=== PATIENT | male | born 1975 | race Two or more races ===

== ENCOUNTER 2017-07-27 17:48 | Emergency (ER) | payer OTHER ==
[~2017-07-27] VITALS: Ht 172.7 cm; Wt 70.3 kg
[2017-07-27] MEDS ORDERED: SILVER SULFADIAZINE CREAM 25 GM TUBE TP ONE (18:30)
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
[2017-07-27] MEDS ORDERED: SILVER SULFADIAZINE CREAM 25 GM TUBE ONE (18:41)
--- NOTE | 2017-07-27 18:50 | NUR ---
EBEN SCHNEIDER AT FOR WOUND CARE.
--- NOTE | 2017-07-27 19:49 | NUR ---
Patient discharged to home in stable condition. Written and verbal after care instructions given. Patient verbalizes understanding of instruction.
[2017-07-27 19:52] VITALS: BP 142/79
== END 2017-07-27 19:53 | disposition home or self-care (01) ==
LOC: ER 17:53
DX: T24.212A Burn of second degree of left thigh, initial encounter (principal); T24.222A Burn of second degree of left knee, initial encounter; T22.211A Burn of second degree of right forearm, initial encounter; T31.0 Burns involving less than 10% of body surface; X15.8XXA Contact with other hot household appliances, initial encounter; Y93.89 Activity, other specified; Y92.89 Other specified places as the place of occurrence of the external cause; Y99.8 Other external cause status
CPT/HCPCS: 16020; 99284; A4606; A6402; A6403 ×2; Z7610

== ENCOUNTER 2018-10-04 18:40 | Emergency (ER) | payer OTHER ==
[~2018-10-04] VITALS: Ht 172.7 cm; Wt 77.1 kg
[2018-10-04 18:40] VITALS: BP 123/71
[2018-10-04] MEDS ORDERED: HYDROCODONE BIT/HOMATROPINE 5 ML UDC ONE (19:46)
[2018-10-04] MEDS ORDERED: HYDROCODONE BIT/HOMATROPINE 5 ML UDC PO ONE (20:00)
[2018-10-04] MEDS ORDERED: IBUPROFEN 600 MG TABLET PO ONE ×2 (20:25→20:30)
[2018-10-04] MEDS ORDERED: DOXYCYCLINE HYCLATE (100 MG) 100 MG TABLET PO ONE (21:30)
[2018-10-04] MEDS ORDERED: DOXYCYCLINE HYCLATE (100 MG) 100 MG TABLET ONE (22:02)
== END 2018-10-04 21:34 | disposition home or self-care (01) ==
LOC: ER 18:44
DX: J18.1 Lobar pneumonia, unspecified organism (principal)
CPT/HCPCS: 71045; 99284; A4606